=== PATIENT | male | born 1955 | race Caucasian/White ===

== ENCOUNTER → 2017-05-05 | Outpatient (CLI) | payer BC ==
[~2017-05-05] MED LIST: CONTRAST GIVEN MC
[2017-05-05] MEDS: IOHEXOL 300 MG/ML 100ML VIAL. IV (08:30)
== END | disposition home or self-care (01) ==
LOC: CT 06:49
DX: N20.0 Calculus of kidney (principal)
CPT/HCPCS: 74178; Q9967

== ENCOUNTER → 2017-06-09 | Outpatient (CLI) | payer BC ==
[2017-06-09] MEDS: IOHEXOL 240 MG/ML 50ML VIAL. PO (08:43)
[2017-06-09] MEDS: IOHEXOL 300 MG/ML 100ML VIAL. IV (08:43)
== END | disposition home or self-care (01) ==
LOC: CT 07:23
DX: K57.30 Diverticulosis of large intestine without perforation or abscess without bleeding (principal); N32.1 Vesicointestinal fistula
CPT/HCPCS: 74177; Q9966; Q9967

== ENCOUNTER → 2017-12-09 | Outpatient (CLI) | payer BC ==
[~2017-12-09] MED LIST changes: +ASPI-630 PO; +ATOR10TA60 PO; +CHOL2000 PO; -CONTRAST GIVEN MC; +FOLI1TAB4 PO; +VARE1TAB21 PO
[2017-12-09 14:01] LABS: BASO % 0 % (0-3); EOS # 0.1 x10^3/uL (0.0-0.7); EOS % 1 % (0-3); HEMATOCRIT 39.2 % (39.0-53.0); HEMOGLOBIN 13.8 g/dL (13.0-17.5); LYMPH # 2.5 x10^3/uL (1.0-4.8); LYMPH % 27 % (24-48); MEAN CORPUSCULAR HEMOGLOBIN 33 pg (25-35); MEAN CORPUSCULAR HGB CONC 35 g/dL (31-37); MEAN CORPUSCULAR VOLUME 94 fL (79-100); MONO # 0.5 x10^3/uL (0.0-1.1); MONO % 5 % (0-9); NEUT # 6.3 x10^3uL (1.8-7.7); NEUT % 67 % (31-73); PLATELET COUNT 270 x10^3/uL (140-400); RED BLOOD COUNT 4.17 x10^6/uL (4.30-5.70); RED CELL DISTRIBUTION WIDTH 14.3 % (11.5-14.5); WHITE BLOOD COUNT 9.4 x10^3/uL (4.0-11.0)
[2017-12-09 14:12] LABS: ALBUMIN 3.6 g/dL (3.4-5.0); CALCIUM 8.9 mg/dL (8.5-10.1); CREATININE 0.9 mg/dL (0.7-1.3); GFR 86.1; POTASSIUM 3.6 mmol/L (3.5-5.1)
== END | disposition home or self-care (01) ==
LOC: SURGPAT 13:27
PROVIDERS: ATTEND Surgery
DX: Z01.818 Encounter for other preprocedural examination (principal); K57.30 Diverticulosis of large intestine without perforation or abscess without bleeding
CPT/HCPCS: 36415; 80048; 82040; 85025

== ENCOUNTER 2017-12-16 09:15 | Inpatient (IN) | payer BC ==
[~2017-12-16] VITALS: Ht 188 cm; Wt 99.8 kg
[2017-12-23] VITALS (9 sets, daily range): BP systolic 108–139; BP diastolic 57–72
[2017-12-23] MEDS ORDERED: LIDOCAINE 1% PF 2 ML VIAL. ID PRN (07:00)
[2017-12-23] MEDS ORDERED: MORPHINE SULFATE 2 MG/ML VIAL. IV PRN (07:00)
[2017-12-23] MEDS ORDERED: PROCHLORPERAZINE 10 MG/2 ML VIAL. IV PRN (07:00)
[2017-12-23] MEDS ORDERED: ONDANSETRON PF 4 MG/2 ML VIAL. IV PRN ×2 (07:00→13:15)
[2017-12-23] MEDS ORDERED: fentaNYL PF VIAL 100 MCG/2 ML VIAL IV PRN (07:00)
[2017-12-23] MEDS ORDERED: HYDROmorphone 2 MG/ML VIAL IV PRN (07:00)
--- NOTE | 2017-12-23 07:45 | PDOC1 ---
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 He comes now for elective resection of the sigmoid colon Past Medical History Pulmonary: No pertinent hx GI: Diverticulosis Hepatobiliary: Other (hypercholesterolemia) Renal/: Other (colovesical fistula) Past Surgical History Past Surgical History: No pertinent history Family History Family History: Diabetes, Heart Disease, High Cholestrol, Hypertension Social History Smoke: Quit ALCOHOL: rare Current Medications Current Medications Current Medications Ondansetron HCl (Zofran) 4 mg PRN Q6HRS PRN IV NAUSEA/VOMITING; Start at 07:00; Stop 12/24/17 at 06:59 Fentanyl Citrate (Fentanyl 2ml Vial) 25 mcg PRN Q5MIN PRN IV MILD PAIN; Start 12/23/17 at 07:00; Stop 12/24/17 at 06:59 Fentanyl Citrate (Fentanyl 2ml Vial) 50 mcg PRN Q5MIN PRN IV MODERATE TO SEVERE PAIN; Start 12/23/17 at 07:00; Stop 12/24/17 at 06:59 Morphine Sulfate (Morphine Sulfate) 1 mg PRN Q10MIN PRN IV SEVERE PAIN; Start 12/23/17 at 07:00; Stop 12/24/17 at 06:59 Ringer's Solution 1,000 ml @ 30 mls/hr Q24H IV ; Start 12/23/17 at 07:00; Stop 12/23/17 at 18:59 Lidocaine HCl (Xylocaine-Mpf 1% 2ml Vial) 2 ml PRN 1X PRN ID PRIOR TO IV START ; Start 12/23/17 at 07:00; Stop 12/24/17 at 06:59 Hydromorphone HCl (Dilaudid) 0.5 mg PRN Q10MIN PRN IV SEV PAIN, Second choice; Start 12/23/17 at 07:00; Stop 12/24/17 at 06:59 Prochlorperazine Edisylate (Compazine) 5 mg PACU PRN PRN IV NAUSEA, MRX1; Start 12/23/17 at 07:00; Stop 10/24/18 at 06:59 Cefoxitin Sodium 50 ml @ 100 mls/hr 1X PREOP PRN IV PRIOR TO PROCEDURE; Start 12/23/17 at 06:00; Stop 12/23/17 at 18:00 Active Scripts Active Reported Atorvastatin Calcium 10 Mg Tablet 1 Tab PO DAILY Centrum Silver Chewable Tablet (Folic Acid/Multivits-Min/Lut) 1 Each Tab.chew 1 Each PO Vitamin D (Cholecalciferol (Vitamin D3)) 2,000 Unit Capsule 2,000 Unit PO Aspirin 81 Mg Tab.chew 81 Mg PO Allergies Allergies: Coded Allergies: No Known Drug Allergies (Unverified , 12/09/17) ROS Review of System negative with exception of present complaints Physical Exam General: Alert, Oriented X3, Cooperative, No acute distress HEENT: Atraumatic Lungs: Normal air movement Heart: RRR Abdomen: Soft, Other (minimally TTP in the LLQ) Rectal Exam: deferred Extremities: No clubbing Images Images recent CT scan is reviewed VTE Prophylaxis Ordered VTE Prophylaxis Devices: Yes VTE Pharmacological Prophylaxi: No Assessment/Plan Assessment/Plan diverticulosis with hx of episode of acute diverticulitis with possible colovesical fistula.. discussed risks of resection including but not limited to bleeding, infection, injury to ureter, bladder, anastomotic leak, possible need for further interventions, temporary stoma he will proceed. VENESSA BATES MD Dec 23, 2017 07:45
[2017-12-23] MEDS ORDERED: PROAIR HFA8.5 GM INH (07:48)
[2017-12-23] MEDS ORDERED: IOHEXOL 300 MG/ML 100ML VIAL. ONE (07:53)
[2017-12-23] MEDS ORDERED: LIDOCAINE 2% JELLY 6ML IN APPLICATOR. ONE (07:54)
[2017-12-23] MEDS: IV RINGERS,LACTATED 1000ML 1,000 ML IV SCH ×2 (07:55→13:17)
[2017-12-23] MEDS ORDERED: ROCURONIUM 50 MG/5 ML VIAL. ONE ×3 (08:07→11:18)
[2017-12-23] MEDS ORDERED: NEOSTIGMINE METHYLSULFATE 5 MG/5 ML SYRINGE. ONE (08:07)
[2017-12-23] MEDS ORDERED: fentaNYL PF VIAL 100 MCG/2 ML VIAL ONE ×3 (08:07→12:35)
[2017-12-23] MEDS ORDERED: GLYCOPYRROLATE 1 MG/5 ML VIAL. ONE (08:07)
[2017-12-23] MEDS ORDERED: SEVOFLURANE > 120 MINUTES. IH ONE (08:07)
[2017-12-23] MEDS ORDERED: MIDAZOLAM HCL/PF 2 MG/2 ML VIAL. ONE (08:07)
[2017-12-23] MEDS ORDERED: DEXAMETHASONE SOD PHOS 20 MG/5 ML VIAL. ONE (08:08)
[2017-12-23] MEDS ORDERED: KETOROLAC 30 MG/ML INJ FOR OR. INJ ONE (08:08)
[2017-12-23] MEDS ORDERED: ONDANSETRON PF 4 MG/2 ML VIAL. ONE (08:08)
[2017-12-23] MEDS ORDERED: LIDOCAINE 2% PF Vial for OR 5 ML VIAL. ONE (08:08)
[2017-12-23] MEDS ORDERED: PROPOFOL 20 ML IV ONE (08:08)
[2017-12-23] MEDS ORDERED: ePHEDrine PF IN SALINE 50 MG/5 ML DISP.SYRIN IV ONE (10:09)
[2017-12-23] MEDS ORDERED: cefOXitin 2GM IVPB FOR OMNI 0 ML IV ONE (10:12)
--- NOTE | 2017-12-23 10:30 | OP ---
DATE OF SURGERY: 12/23/2017 PREOPERATIVE DIAGNOSES: 1. Diverticulitis. 2. Colovesical fistula. POSTOPERATIVE DIAGNOSES: 1. Diverticulitis. 2. Colovesical fistula. PROCEDURE PERFORMED: 1. Cystourethroscopy. 2. Bilateral 5-Macanese whistle tip ureteral catheter placement. ANESTHESIA: General. COMPLICATIONS: None. BLOOD LOSS: None. INDICATIONS FOR THE PROCEDURE: The patient is a 62-year-old male who was noted to have a perforated diverticular abscess as well as a colovesical fistula. Plan for resection today with Dr. Lopez who has asked that I place ureteral catheters for intraoperative ureteral identification. DESCRIPTION OF PROCEDURE: The patient was met in the preoperative holding area where his procedure, risks and benefits, and alternatives were reviewed in detail. Informed consent was obtained. He was brought back to the operating room and placed supine on the operating table. A timeout was called identifying the correct patient, procedure, preoperative antibiotics and bilaterality. All members of surgical team were in agreement. General anesthesia was induced and he was repositioned into dorsal lithotomy, prepped and draped in sterile fashion. A 21-Macanese rigid cystoscope was placed atraumatically through his urethra into his bladder. No abnormalities were noted within the anterior urethra. His prostate was roughly 2 cm in length with mild hyperplasia of his lateral lobes. Complete cystoscopy was performed with 30-degree lens and identified significant bullous edema on the posterior wall of the bladder consistent with the location of the colovesical fistula. There appeared to be a small particle of stool in there. The ureteral orifices were orthotopic in position. Next, a 5-Macanese whistle-tip catheter was placed in the left ureteral orifice. This was advanced up to the 25-cm jag. It went very easily. The identical procedure was done on the right side. The bladder was reinspected and no trauma was noted. The scope was looked out under direct vision. A 16-Macanese Lopez catheter was placed. The balloon was inflated with 10 mL of sterile water. The ureteral catheters were threaded through the urethral catheter with an Angiocath needle and secured to the catheter with 0 silk ties. The patient was then transferred over to Dr. Lopez's care. Dr. Lopez will remove the stent and the catheter at his discretion and the patient could follow up with me as needed. AIMEE FALK MD DR: Ruth JOB#: [id number] / [id number]
--- NOTE | 2017-12-23 13:05 | RAD ---
Portable abdomen, 12/23/2017: HISTORY: Postop sigmoid resection A surgical drain overlies the upper pelvis. The abdominal gas pattern is unremarkable. Streaky gas collections are present in the lower pelvis on a postoperative basis. There is no evidence of a retained surgical instrument, needle or radiopaque sponge. Electronically signed by: Delgado Zuniga MD (12/23/2017 1:01 PM) [facility]
[2017-12-23] MEDS ORDERED: diphenhydrAMINE HCL 25 MG CAPSULE PO PRN (13:15)
[2017-12-23] MEDS ORDERED: 0.9 % SODIUM CHLORIDE 10 ML DISP.SYRIN. IV PRN (13:15)
[2017-12-23] MEDS: fentaNYL PF VIAL 100 MCG/2 ML VIAL IV PRN ×2 (13:22→13:45)
[2017-12-23] MEDS: MORPHINE SULFATE/PF 30 ML IV PRN ×2 (13:56→20:25)
--- NOTE | 2017-12-23 14:07 | OP ---
DATE OF SURGERY: 12/23/2017 PREOPERATIVE DIAGNOSIS: Colovesical fistula. POSTOPERATIVE DIAGNOSES: Colovesical fistula secondary to diverticulitis. PROCEDURE: 1. Rigid proctoscopy. 2. Sigmoid resection with transanal EEA. SURGEON: Rex Bates MD. SPOOL HAULER: JANES Ford ANESTHESIA: General endotracheal. ESTIMATED BLOOD LOSS: 100 mL. INTRAVENOUS FLUIDS: 1500 mL. URINE OUTPUT: 200 mL. 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 He developed a colovesical fistula. He is brought for resection. OPERATIVE FINDINGS: Small bowel was run from ligament of Treitz to ileocecal valve without abnormality. There is fibrotic appendix. The ascending, transverse and descending colon were unremarkable. In the mid distal sigmoid, there was a large inflammatory mass densely adhered to the posterior lateral aspect of the liver on the left side. DESCRIPTION OF PROCEDURE: The patient brought to the operating suite, given a general endotracheal anesthetic, placed in dorsal lithotomy position and underwent ureteral stent placement by Dr. Fenton who will dictate. Digital rectal exam was done and the rigid scope was advanced to approximately 18 cm from the anal verge where we met some obstruction. Scope was slowly removed. No abnormalities seen. Abdomen then prepped and draped in usual sterile fashion. Midline incision from umbilicus to pubis. The abdomen carefully entered, extended with cautery avoiding injury to abdominal contents. Abdomen explored with results as noted above. With the Omni self-retaining retractor for exposure, the distal descending and proximal sigmoid colon was reflected off the pelvic wall by taking down the white line of Toldt. Care was taken to identify the ureter with stent and avoided during the dissection. An area of uninvolved colon proximal to the process was divided with a MONIK stapler. The mesocolon was then similarly clamped, divided and ligated down to a point beyond the area of inflammation. This necessitated a blunt dissection of the mass off the posterior wall of the bladder. When uninvolved bowel was reached beyond the process, it was divided with a Contour stapler and the specimen passed off. The pursestring maker was then used on the distal end of the colon, sizing to a 29 mm EEA. The anvil placed and secured with a pursestring suture. The instrument was then passed transanally to the proximal rectal stump. Staple anastomosis created with the EEA. With the anastomosis submerged in saline, the colon was insufflated from below and no evidence of air leak was seen. Gloves were changed. Area was irrigated, evacuated and checked for hemostasis. When present and a correct sponge count was obtained, a 19-Swedish round Andrea drain was brought through a stab wound, sewn to the skin with a silk stitch and left in the pelvis for postoperative drainage. A "ghost" ileostomy was created with a large vessel loop passed through the right lower quadrant of the abdominal wall encircling the distal ileum. Care was taken to avoid creating an obstruction of the distal small bowel. When a second sponge count was correct, the incision was closed by running the posterior sheath peritoneum with 0 Vicryl. Anterior sheath closed in running fashion with looped 0 PDS tied in the middle. Skin closed with subcuticular 4-0 Monocryl. Sterile dressings applied. The patient was taken out of the lithotomy position. Postop foreign body film was negative for unexplained foreign body. The patient was awakened from his anesthetic and taken to the recovery room in satisfactory condition. REX BATES MD DR: ANGELES/marylin JOB#: [id number] / [id number]
[2017-12-23] MEDS ORDERED: MORPHINE SULFATE/PF 30 ML IV PRN (14:15)
[2017-12-23] MEDS ORDERED: ALBUTEROL SULFATE 2.5 MG/3 ML NEBU. NEB PRN (14:30)
[2017-12-23] MEDS: POTASSIUM CL 20MEQ-0.45% NACL 1,000 ML IV SCH (15:00)
[2017-12-24] MEDS: POTASSIUM CL 20MEQ-0.45% NACL 1,000 ML IV SCH ×2 (01:38→09:39)
[2017-12-24 03:31] VITALS: BP 113/43
[2017-12-24 07:00] VITALS: BP 113/50
[2017-12-24] MEDS: MORPHINE SULFATE/PF 30 ML IV PRN ×2 (07:28→16:39)
[2017-12-24] MEDS: ASPIRIN CHEWABLE 81 MG TABLET. PO SCH (07:59)
[2017-12-24] MEDS: ENOXAPARIN 40 MG/0.4 ML SYRINGE. SQ SCH (09:38)
--- NOTE | 2017-12-24 10:06 | PDOC ---
SURGICAL PROGRESS NOTE Subjective some LLQ pain, using MORTGAGE LENDER no n/v has been eating ice Vital Signs Vital Signs Date Time Temp Pulse Resp B/P (MAP) Pulse Ox O2 Delivery O2 Flow Rate FiO2 12/24/17 07:59 Room Air 12/24/17 07:28 16 95 12/24/17 07:00 97.9 68 113/50 (71) 97.9 12/23/17 20:55 2.0 I&O Intake and Output 12/24/17 07:00 Intake Total 2410 ml Output Total 1240 ml Balance 1170 ml Intake Oral 360 ml IV Total 2050 ml Output Urine Total 1000 ml Drainage Total 140 ml Estimated Blood Loss 100 ml # Voids 1 PATIENT HAS A WHITLEY: Yes (needs to stay for a week (colovesical fistula)) General: Alert, No acute distress Abdomen: Soft, Other (dressing intact, JYOTSNA with serosanguineous output) Assessment/Plan POD 1. sigmoid resection with EEA VENESSA Thorne MD Dec 24, 2017 10:06
[2017-12-24 11:00] VITALS: BP 125/56
[2017-12-24 15:00] VITALS: BP 117/66
[2017-12-24 19:00] VITALS: BP 130/105
[2017-12-24 23:00] VITALS: BP 124/60
[2017-12-25] VITALS (7 sets, daily range): BP systolic 112–147; BP diastolic 59–70
[2017-12-25] MEDS: POTASSIUM CL 20MEQ-0.45% NACL 1,000 ML IV SCH ×3 (02:48→21:18)
[2017-12-25 05:24] LABS: CREATININE 0.8 mg/dL (0.7-1.3); GFR 98.6
[2017-12-25] MEDS: MORPHINE SULFATE/PF 30 ML IV PRN (07:40)
[2017-12-25] MEDS: ASPIRIN CHEWABLE 81 MG TABLET. PO SCH (09:26)
[2017-12-25] MEDS: ENOXAPARIN 40 MG/0.4 ML SYRINGE. SQ SCH (09:28)
--- NOTE | 2017-12-25 12:33 | PDOC ---
SURGICAL PROGRESS NOTE Subjective pain issues, melinda when moving no n/v + flatus Vital Signs Vital Signs Date Time Temp Pulse Resp B/P (MAP) Pulse Ox O2 Delivery O2 Flow Rate FiO2 12/25/17 08:00 Room Air 4.0 12/25/17 08:00 16 12/25/17 07:00 98.3 66 131/65 (87) 97 98.3 I&O Intake and Output 12/25/17 07:00 Intake Total 1600 ml Output Total 1310 ml Balance 290 ml Intake Oral 1600 ml Output Urine Total 1150 ml Drainage Total 160 ml # Voids 4 PATIENT HAS A ARTHUR: Yes (coloves fistula) General: Alert, Oriented X3, Cooperative, No acute distress Abdomen: Soft, Other (dressing dry, fani serous) Labs Laboratory Tests Test 12/25/17 04:25 Platelet Count 260 x10^3/uL (140-400) Creatinine 0.8 mg/dL (0.7-1.3) Estimated GFR (Cockcroft-Gault) 98.6 Laboratory Tests Test 12/25/17 04:25 Platelet Count 260 x10^3/uL (140-400) Creatinine 0.8 mg/dL (0.7-1.3) Estimated GFR (Cockcroft-Gault) 98.6 Assessment/Plan s/p sigmoid resection 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
--- NOTE | 2017-12-25 14:10 | PATHOLOGY ---
[facility] Accession Number: [id number] . 01 Material submitted: . PART A: SIGMOID COLON-STITCH AT PROXIMAL END PART B: PROXIMAL COLON DONUT PART C: DISTAL COLON DONUT . 01 Clinical history: . Colovesical fistula . 02 Diagnosis: A. Segment of colon and attached mesocolon, sigmoid colon segmental resection: - Diverticulosis. - Acute and chronic diverticulitis with pericolic abscesses and with focal perforation and colovesical fistula (clinical). - Reactive changes of mesocolic lymph nodes. - Hyperplastic polyps, multiple. . B. Segment of colonic tissue, proximal colon donut: - No diagnostic abnormalities. . C. Segment of colonic tissue, distal colon donut: - Small hyperplastic polyp. (REMBERTO/jaziel; 12/25/2017) LBQ/12/25/2017 . 02 Electronically signed: . Hilario Sales MD, Pathologist NPI- [id number] . 01 Gross description: . A. The specimen is received fresh for intraoperative gross consultation, labeled, "Josh Monzon - Sigmoid colon" is a curved segment of colon with attached mesocolon. The segment measures approximately 21.0 cm in length. The segment is stapled closed at both ends. There is a suture attached to the proximal end. The serosal surface is pink to reddish-brown and erythematous. The pericolic fat is yellow-red and focally hemorrhagic. There is an area of hemorrhagic roughening and induration of the serosal surface, which measures approximately 3.5 x 1.5 cm. The segment is opened along the anti mesocolon. There is narrowing of the mid portion of the segment associated with prominent thickening of the bowel wall. The mucosa is pink-alas to pinkish-angel and somewhat redundant. There are several scattered small focally erythematous pink-alas polyps, the largest of which is present proximally and measures up to 0.8 cm. There are multiple diverticuli within the segment. One of these diverticuli probe into the area of hemorrhagic serosal roughening consistent with an area of perforated diverticulitis and colovesical fistula. There is no evidence of malignancy. (JPM:mml; 12/23/17) . The probed area of perforated diverticulitis is inked black. Sectioning reveals multiple diverticula measuring up to 1.5 cm in addition to the perforated diverticulum. A few of these additional diverticula show areas of surrounding inflammation/probable abscess formation. The pericolic fat reveals multiple readily identifiable lymph node candidates ranging from 0.2 cm to 1.3 cm. Medical Center Director sections are submitted as follows: . A1: Proximal margin A2: Distal margin A3-A4: Perforated diverticula A5-A6: Polyps A7-A9: Additional diverticula with probable abscess formation A10: 2 bisected lymph node candidates A11: One trisected lymph node candidate A12: Intact lymph node candidates . B. The specimen is received in formalin, labeled "Arnold, Josh, proximal colon donut" and consists of a "colon donut" measuring 2.2 x 2.0 x 1.0 cm. The bulging mucosa is alas-brown with no gross lesions. A payable representative section is submitted in B1. . C. The specimen is received in formalin, labeled "Arnold, Josh, distal colon donut" and consists of a "colon donut" measuring 2.0 x 1.7 x 1.1 cm. The bulging alas-brown mucosa displays a possible polyp measuring 0.3 x 0.3 cm. Medical Center Director sections including the possible polyp are submitted in C1. (SDY; 12/24/2017) . INTRAOPERATIVE GROSS CONSULTATION: (Dr. Hilario Sales) . A. Segment of colon and attached mesocolon, sigmoid colon, segmental resection: - Diverticulosis and diverticulitis with focal perforation. - Several small colonic polyps. . The results were displayed to Dr. Lopez in the operating room. (JPM:mml; 12/23/17) . . Gross consultation performed at [facility], [address] [place] [id number]. /QLM . 02 Pathologist provided ICD-10: K57.32, K57.30, K63.5 . 02 CPT . 887396, 059811, 392500, 469029 Specimen Comment: A courtesy copy of this report has been sent to Specimen Comment: [phone], . Specimen Comment: Report sent to / DR MOORE Specimen Comment: A duplicate report has been generated due to demographic updates. Performed at: [facility] [address] [facility] [address], [place] [id number] MD Lazarus Penaloza MD Phone: [phone] [facility]formed at: [facility] [address] [place], [place] [id number] MD Hilario Sales MD Phone: [phone]
[2017-12-25] MEDS: ACETAMINOPHEN 325 MG TABLET. PO PRN (21:16)
[2017-12-26 03:00] VITALS: BP 138/70
[2017-12-26 07:00] VITALS: BP 136/65
[2017-12-26] MEDS: POTASSIUM CL 20MEQ-0.45% NACL 1,000 ML IV SCH (07:54)
[2017-12-26] MEDS: ASPIRIN CHEWABLE 81 MG TABLET. PO SCH (07:56)
[2017-12-26] MEDS: ENOXAPARIN 40 MG/0.4 ML SYRINGE. SQ SCH (07:57)
[2017-12-26] MEDS: ACETAMINOPHEN 325 MG TABLET. PO PRN (08:52)
[2017-12-26] MEDS: BENZOCAINE/MENTHOL LOZENGE. PO PRN ×4 (08:52→21:56)
[2017-12-26 11:00] VITALS: BP 137/71
--- NOTE | 2017-12-26 12:37 | PDOC ---
SURGICAL PROGRESS NOTE Subjective Tolerating diet + flatus no emesis, no bloating Vital Signs Vital Signs Date Time Temp Pulse Resp B/P (MAP) Pulse Ox O2 Delivery O2 Flow Rate FiO2 12/26/17 11:00 99.7 66 16 137/71 (93) 93 Room Air 99.7 12/25/17 08:00 4.0 I&O Intake and Output 12/26/17 07:00 Output Total 5135 ml Balance -5135 ml Output Urine Total 4775 ml Drainage Total 360 ml PATIENT HAS A ARTHUR: Yes General: Alert, Oriented X3, Cooperative, No acute distress Abdomen: Soft, Other (incision c/d/i, no erythema, JYOTSNA serosang) Labs Laboratory Tests Test 12/25/17 04:25 Platelet Count 260 x10^3/uL (140-400) Creatinine 0.8 mg/dL (0.7-1.3) Estimated GFR (Cockcroft-Gault) 98.6 Assessment/Plan s/p resection 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
[2017-12-26 15:00] VITALS: BP 107/77
[2017-12-26] MEDS: oxyCODONE/APAP 5/325 1 TAB TABLET PO PRN ×2 (15:42→21:59)
[2017-12-26 19:00] VITALS: BP 120/68
[2017-12-26] MEDS ORDERED: diphenhydrAMINE HCL 25 MG CAPSULE PO ONE (21:00)
[2017-12-26 23:00] VITALS: BP 138/70
[2017-12-27 03:00] VITALS: BP 115/72
[2017-12-27] MEDS: oxyCODONE/APAP 5/325 1 TAB TABLET PO PRN ×3 (03:20→12:40)
[2017-12-27 07:48] VITALS: BP 116/71
[2017-12-27] MEDS: ASPIRIN CHEWABLE 81 MG TABLET. PO SCH (08:30)
[2017-12-27] MEDS: BENZOCAINE/MENTHOL LOZENGE. PO PRN (08:30)
[2017-12-27] MEDS: ENOXAPARIN 40 MG/0.4 ML SYRINGE. SQ SCH (08:31)
--- NOTE | 2017-12-27 09:49 | DISCH ---
DISCHARGE INSTRUCTIONS Condition on Discharge Condition on Discharge: Stable Activity After Discharge Activity Instructions for Disc: Activity as tolerated Other activity instructions: no lifting > 20 lbs Bathing Instructions: Shower-keep dressing dry Lifting Instructions after Dis: No heavy lifting, No pulling or pushing Driving Instructions after Dis: Do not drive Diet after Discharge Diet after Discharge: Regular Wound Incision Care Wound/Incision Care: May get incision wet, No wound care needed (midline incision can be left uncovered ) Other wound/incision instructi: keep waterproof dressing in place, can change dressing to old drain siteprn Checks after Discharge DC Comment: arthur cath as instructed Contacting the DRDenton after DC Call your doctor for: Concerns you may have Follow-Up Follow up with: Dr Lopez, call friday to FU this week [phone] MICHAELA SEE MEAL ATTENDANT Dec 27, 2017 09:49
[2017-12-27] MEDS ORDERED: OXYC1TAB7 PO (09:51)
--- NOTE | 2017-12-27 09:52 | PDOC ---
SURGICAL PROGRESS NOTE Subjective tolerating diet + flatus pain managed ready to go home Vital Signs Vital Signs Date Time Temp Pulse Resp B/P (MAP) Pulse Ox O2 Delivery O2 Flow Rate FiO2 12/27/17 08:31 Room Air 12/27/17 07:48 98.0 69 18 116/71 (86) 92 98.0 I&O Intake and Output 12/27/17 07:00 Intake Total 523 ml Output Total 1435 ml Balance -912 ml IV Total 523 ml Output Urine Total 1350 ml Drainage Total 85 ml General: Alert, Oriented X3, Cooperative, No acute distress Abdomen: Soft, Other (JYOTSNA serosang, incision c/d/i, no erythema, ghost in place) Assessment/Plan drain removed arthur teaching, leave ghost in place at SD FU in clinic this week with MICHAELA Yang APRN Dec 27, 2017 09:52
--- NOTE | 2017-12-27 09:55 | PDOC3 ---
Discharge Summary Visit Information Date of Admission: Dec 23, 2017 Date of Discharge: Dec 27, 2017 Admitting Diagnosis: Colovesical fistula secondary to diverticulitis. Final Diagnosis Colovesical fistula secondary to diverticulitis. Brief Hospital Course Allergies Allergies Coded Allergies Type Severity Reaction Last Updated Verified No Known Drug Allergies 12/09/17 No Vital Signs Vital Signs Date Time Temp Pulse Resp B/P (MAP) Pulse Ox O2 Delivery O2 Flow Rate FiO2 12/27/17 08:31 Room Air 12/27/17 07:48 98.0 69 18 116/71 (86) 92 98.0 Brief Hospital Course Mr. Monzon is a 62 old male who presented with Colovesical fistula secondary to diverticulitis. he underwent 1. Rigid proctoscopy. 2. Sigmoid resection with transanal EEA. Postoperatively bowel function slowly returned. Pain managed. Ready for discharge home. Will go home with catheter in place Discharge Information Condition at Discharge: Stable Follow Up: Weeks (1) Disposition/Orders: D/C to Home Scheduled Atorvastatin Calcium (Atorvastatin Calcium) 10 Mg Tablet, 1 TAB PO DAILY, #30 Ref 5 (Reported) Entered as Reported by: ERIC QUIÑONES on 12/09/17 1346 Last Taken: Unknown Dose on 12/22/17 Last Action: HELD on 12/23/17 1320 by VENESSA BATES Scheduled PRN Albuterol Sulfate (Proair Hfa Inhaler) 8.5 Gm Hfa.aer.ad, 2 PUFF INH PRN Q6HRS PRN for SHORTNESS OF BREATH, Ref 0 (Reported) Entered as Reported by: MIGUE CASTRO on 12/23/17 0748 Last Taken: Unknown Dose on 12/23/17 0530 Last Action: Converted on 12/23 1320 by VENESSA BATES Oxycodone Hcl/Acetaminophen (Oxycodone-Acetaminophen 5-325) 1 Each Tablet, 1 TAB PO PRN Q4HRS PRN for PAIN, #30 Ref 0 Prescribed by: Michaela Mancia on 12/27/17 0951 Miscellaneous Medications Aspirin (Aspirin) 81 Mg Tab.chew, 81 MG PO, (Reported) Entered as Reported by: LEONARDO SESAY on 05/05/17 0747 Last Taken: Unknown Dose on 12/16/17 Last Action: Continued on 12/23/17 1319 by VENESSA BATES Cholecalciferol (Vitamin D3) (Vitamin D) 2,000 Unit Capsule, 2,000 UNIT PO, ( Reported) Entered as Reported by: LEONARDO SESAY on 05/05/17 0747 Last Taken: Unknown Dose on 12/16/17 Last Action: HELD on 12/23/17 1319 by VENESSA BATES Folic Acid/Multivits-Min/Lut (Centrum Silver Chewable Tablet) 1 Each Tab.chew, 1 EACH PO, (Reported) Entered as Reported by: ERIC QUIÑONES on 12/09/17 1346 Last Taken: Unknown Dose on 12/16/17 Last Action: HELD on 12/23/17 1320 by MICHAELA ALEXANDRE APRN Dec 27, 2017 09:55
[2017-12-27 11:32] VITALS: BP 120/77
== END 2017-12-27 12:45 | disposition home or self-care (01) | DRG 330 ==
LOC: OPSVCIP 12-23 07:12 → 4 NORTH 12-23 14:33
PROVIDERS: ADMIT Surgery; ATTEND Surgery
PROC: 0D1B0Z4 Bypass Ileum to Cutaneous, Open Approach (ICD-10-PCS; 2017-12-23)
PROC: 0DBN0ZZ Excision of Sigmoid Colon, Open Approach (ICD-10-PCS; principal; 2017-12-23 09:00)
PROC: 0T788DZ Dilation of Bilateral Ureters with Intraluminal Device, Via Natural or Artificial Opening Endoscopic (ICD-10-PCS; 2017-12-23 09:00)
DX: K57.80 Diverticulitis of intestine, part unspecified, with perforation and abscess without bleeding (principal); N32.1 Vesicointestinal fistula; E78.00 Pure hypercholesterolemia, unspecified; Z82.49 Family history of ischemic heart disease and other diseases of the circulatory system; Z83.3 Family history of diabetes mellitus; Z79.899 Other long term (current) drug therapy
CPT/HCPCS: 36415; 74018; 82565; 85049; 86850; 86900; 86901; 88304; 88307; A7015; C1769; J0694; J1100; J1650; J1885; J2001; J2250; J2270; J2405; J2704; J2710; J3010; J3490; J7120; Q0163; Q9967; 97110; 97116; 97530; 97535

== ENCOUNTER → 2018-01-12 | Outpatient (CLI) | payer BC ==
[2017-12-27 11:32] VITALS: BP 120/77
[~2018-01-12] MED LIST changes: +OXYC1TAB7 PO; +PROAIR HFA8.5 GM INH
[2018-01-12 14:17] LABS: BASO % 0 % (0-3); EOS # 0.1 x10^3/uL (0.0-0.7); EOS % 1 % (0-3); HEMATOCRIT 37.5 % (39.0-53.0); LYMPH # 2.3 x10^3/uL (1.0-4.8); LYMPH % 15 % (24-48); MEAN CORPUSCULAR HEMOGLOBIN 32 pg (25-35); MEAN CORPUSCULAR HGB CONC 35 g/dL (31-37); MEAN CORPUSCULAR VOLUME 93 fL (79-100); MONO % 6 % (0-9); NEUT # 12.5 x10^3uL (1.8-7.7); NEUT % 79 % (31-73); PLATELET COUNT 409 x10^3/uL (140-400); RED BLOOD COUNT 4.03 x10^6/uL (4.30-5.70); RED CELL DISTRIBUTION WIDTH 13.7 % (11.5-14.5)
[2018-01-12 14:26] LABS: CALCIUM 8.9 mg/dL (8.5-10.1); CREATININE 0.9 mg/dL (0.7-1.3); GFR 86.1; POTASSIUM 3.6 mmol/L (3.5-5.1)
== END | disposition home or self-care (01) ==
LOC: LAB 13:48
PROVIDERS: ATTEND Surgery
DX: N32.1 Vesicointestinal fistula (principal); Z98.890 Other specified postprocedural states
CPT/HCPCS: 36415; 80048; 85025

== ENCOUNTER → 2018-01-15 | Outpatient (CLI) | payer BC ==
[2017-12-27 11:32] VITALS: BP 120/77
[~2018-01-15] MED LIST changes: +CONTRAST GIVEN. MC PRN; +IOHEXOL 300 MG/ML 100ML VIAL. IV ONE
--- NOTE | 2018-01-15 10:43 | RAD ---
CT Abdomen and Pelvis With Intravenous Contrast: History: Reevaluate colovesical fistula. Comparison: CT abdomen pelvis November 10, 2017. Technique: After administration of rectal and intravenous contrast, 75 mL Omnipaque-300, CT of the abdomen and pelvis was performed. No oral contrast was administered. Exposure: One or more of the following individualized dose reduction techniques were utilized for this examination: 1. Automated exposure control 2. Adjustment of the mA and/or kV according to patient size 3. Use of iterative reconstruction technique Findings: Liver, spleen, pancreas gallbladder, and right adrenal gland are unremarkable. Left adrenal gland is unchanged. Bilateral kidneys enhance symmetrically. Right kidney demonstrates 1.6 cm cyst. Mild aortic atherosclerosis is present. Circumaortic left renal vein is seen. Colon is well filled by rectal contrast. There is no evidence of extraluminal rectal contrast. There is interval decrease in redundancy of the sigmoid colon, compatible with partial sigmoid resection. Previously identified sigmoid colocolic fistula is no longer seen. The current examination is without evidence of colovesical fistula. There is evidence of nonspecific stranding within the pelvis surrounding the sigmoid colon as well as the urinary bladder; urinary bladder also demonstrates wall thickening. Stranding may be postsurgical in nature versus represents ongoing inflammatory change. There is interval placement of a small device which extends from skin surface of the right anterior upper ventral pelvic wall and appears to loop around a portion of the small bowel; this may be some type of retention device to elevate the bowel. Impression: 1. Interval sigmoid colonic resection. 2. The current examination is without evidence of colovesical fistula as rectal contrast remains within the lumen in the colon. Additionally, while there is mild stranding as well as wall thickening and surrounding the urinary bladder, inflammatory change is not as extensive as on comparison study. Electronically signed by: Dani Parker MD (01/15/2018 10:39 AM) [place] [id number]
== END | disposition home or self-care (01) ==
LOC: CT 09:16
PROVIDERS: ATTEND Surgery
DX: I70.0 Atherosclerosis of aorta (principal); N28.1 Cyst of kidney, acquired; I10 Essential (primary) hypertension; E11.9 Type 2 diabetes mellitus without complications
CPT/HCPCS: 74177; Q9967